=== PATIENT | female | born 1980 | race American Indian/Alaskan Native ===

== ENCOUNTER 2018-12-30 02:55 | Emergency (ER) | payer OTHER ==
[2018-12-30] MEDS ORDERED: DUONEB *Not for PRN Use IH ONE ×3 (03:03→03:10)
[2018-12-30 03:09] VITALS: BP 169/88
--- NOTE | 2018-12-30 05:09 | XRay Report ---
PROCEDURE: XR CHEST ROUTINE 2V TECHNIQUE: PA and lateral views the chest were submitted. HISTORY: cough and wheezing COMPARISONS: 08/05/2016 FINDINGS: The heart size and mediastinum appear normal. The lungs are not congested. The lungs are clear. Pleur al fluid is not seen. The skeletal structures do not show any acute changes. IMPRESSION: No acute cardiopulmonary process.. This document is electronically signed by Praveen Swift MD., December 30 2018 05:07:14 AM ET
[2018-12-30] MEDS ORDERED: DECADRON IM ONE (08:19)
[2018-12-30] MEDS ORDERED: ROBITUSSIN PO ONE (08:21)
[2018-12-30] MEDS ORDERED: ZOFRAN ODT PO ONE (08:29)
[2018-12-30] MEDS ORDERED: ZOFRAN ODT ONE (08:32)
--- NOTE | 2018-12-30 08:37 | Emergency Department Report ---
ED Asthma HPI - General Chief Complaint: Adult Asthma Stated Complaint: ASTHMA SOB Time Seen by Provider: 12/30/18 08:06 Source: patient Mode of arrival: Ambulatory Limitations: No Limitations - History of Present Illness Initial Comments: 38-year-old female with a history of asthma presents easy complaint wheezing and coughing that started yesterday morning. She says that she is out of her Symbicort prescription. Patient denies chest pain, fever, nausea vomiting - Related Data Previous Rx's Medication Instructions Recorded Last Taken Type Budesonide [Pulmicort Respules] 0.5 mg IH Q12HR #30 nebu 02/07/16 Unknown Rx Albuterol Sulfate [Albuterol 0.63% 0.63 mg IH Q4-6H PRN #1 box 08/01/16 Unknown Rx NEBS] Albuterol Sulfate [Ventolin HFA] 2 puff IH Q4H PRN #1 hfa.aer.ad 08/01/16 Unknown Rx Ipratropium [Atrovent NEB] 0.5 mg IH Q6HRT PRN #25 neb 08/01/16 Unknown Rx Azithromycin [Zithromax TAB] 500 mg PO QDAY #4 tablet 08/06/16 Unknown Rx Benzonatate [Tessalon Perles] 100 mg PO Q8HR #20 capsule 12/30/18 Unknown Rx Budesonide/Formoterol Fumarate 10.2 gm IH PRN #1 hfa.aer.ad 12/30/18 Unknown Rx [Symbicort 160-4.5 Mcg Inhaler] Montelukast [Singulair] 10 mg PO QPM #30 tablet 12/30/18 Unknown Rx Prednisone [predniSONE 10 mg 10 mg PO .TAPER #1 tab.ds.pk 12/30/18 Unknown Rx (6-Day Pack, 21 Tabs)] Allergies Allergy/AdvReac Type Severity Reaction Status Date / Time No Known Allergies Allergy Verified 05/18/15 08:48 ED Review of Systems ROS: Stated complaint: ASTHMA SOB Other details as noted in HPI Comment: All other systems reviewed and negative ED Past Medical Hx - Past Medical History Previous Medical History?: Yes Hx Hypertension: No Hx Heart Attack/AMI: No Hx Congestive Heart Failure: No Hx Diabetes: Yes (gestational) Hx Arthritis: No Hx Asthma: Yes Hx COPD: No Hx HIV: No Additional medical history: OBESITY - Surgical History Past Surgical History?: No - Social History Smoking Status: Former Smoker Substance Use Type: None - Medications Home Medications: Home Medications Medication Instructions Recorded Confirmed Last Taken Type Budesonide [Pulmicort Respules] 0.5 mg IH Q12HR #30 nebu 02/07/16 08/05/16 Unknown Rx Albuterol Sulfate [Albuterol 0.63% 0.63 mg IH Q4-6H PRN #1 box 08/01/16 08/05/16 Unknown Rx NEBS] Albuterol Sulfate [Ventolin HFA] 2 puff IH Q4H PRN #1 hfa.aer.ad 08/01/16 08/05/16 Unknown Rx Ipratropium [Atrovent NEB] 0.5 mg IH Q6HRT PRN #25 neb 08/01/16 08/05/16 Unknown Rx Azithromycin [Zithromax TAB] 500 mg PO QDAY #4 tablet 08/06/16 Unknown Rx Benzonatate [Tessalon Perles] 100 mg PO Q8HR #20 capsule 12/30/18 Unknown Rx Budesonide/Formoterol Fumarate 10.2 gm IH PRN #1 hfa.aer.ad 12/30/18 Unknown Rx [Symbicort 160-4.5 Mcg Inhaler] Montelukast [Singulair] 10 mg PO QPM #30 tablet 12/30/18 Unknown Rx Prednisone [predniSONE 10 mg 10 mg PO .TAPER #1 tab.ds.pk 12/30/18 Unknown Rx (6-Day Pack, 21 Tabs)] ED Physical Exam - General Limitations: No Limitations General appearance: alert, in no apparent distress - Head Head exam: Present: atraumatic, normocephalic - Eye Eye exam: Present: normal appearance - ENT ENT exam: Present: mucous membranes moist - Neck Neck exam: Present: normal inspection - Respiratory Respiratory exam: Present: normal lung sounds bilaterally, wheezes (moderately bilaterally). Absent: respiratory distress, rales, rhonchi, chest wall tenderness, accessory muscle use - Cardiovascular Cardiovascular Exam: Present: regular rate, normal rhythm. Absent: systolic murmur, diastolic murmur, rubs, gallop - GI/Abdominal GI/Abdominal exam: Present: soft, normal bowel sounds - Extremities Exam Extremities exam: Present: normal inspection - Back Exam Back exam: Present: normal inspection - Neurological Exam Neurological exam: Present: alert, oriented X3 - Psychiatric Psychiatric exam: Present: normal affect, normal mood - Skin Skin exam: Present: warm, dry, intact, normal color. Absent: rash ED Course Vital Signs 12/30/18 12/30/18 03:02 08:36 Temperature 98.1 F Pulse Rate 78 58 L Respiratory 20 20 Rate Blood Pressure 169/88 O2 Sat by Pulse 95 97 Oximetry ED Medical Decision Making - Radiology Data Radiology results: report reviewed, image reviewed - Medical Decision Making 38-year-old female presents with asthma exacerbation (Mild) ED course: Chest x-ray ordered, chest x-ray shows no acute findings. Patient had no respiratory distress in the ED. Post treatment evaluation: No wheezing heard, no use of accessory muscles, I discussed with the patient to follow up with her primary care physician. I discussed with the patient will be going home on with albuterol inhaler as we ll as nebulizer Vital signs are normalized, patient is saturation at 99% on room air. I discussed with the patient is symptoms worsen to return to ED immediately. Critical care attestation.: If time is entered above; I have spent that time in minutes in the direct care of this critically ill patient, excluding procedure time. ED Disposition Clinical Impression: Asthma Disposition: DC-01 TO HOME OR SELFCARE Is pt being admited?: No Does the pt Need Aspirin: No Condition: Stable Instructions: Asthma (ED) Additional Instructions: Make sure to follow up with the primary care physician as discussed. Take all your medications as you've been prescribed. If you have any worsening symptoms or develop new symptoms please return to ED immediately. Prescriptions: Prednisone [predniSONE 10 mg (6-Day Pack, 21 Tabs)] 10 mg PO .TAPER #1 tab.ds.pk Montelukast [Singulair] 10 mg PO QPM #30 tablet Budesonide/Formoterol Fumarate [Symbicort 160-4.5 Mcg Inhaler] 10.2 gm IH PRN #1 hfa.aer.ad Benzonatate [Tessalon Perles] 100 mg PO Q8HR #20 capsule Referrals: PRIMARY CARE, [Primary Care Provider] - 3-[address] [facility] [Provider Group] - 3-[address] [facility] [Outside] - 3-5 Days [facility] [Outside] - 3-5 Days Forms: Work/School Release Form(ED) Time of Disposition: 08:38
== END 2018-12-30 08:50 | disposition home or self-care (01) ==
LOC: ED 02:55
DX: J45.909 Unspecified asthma, uncomplicated (principal); E11.9 Type 2 diabetes mellitus without complications; E66.9 Obesity, unspecified; Z68.44 Body mass index [BMI] 60.0-69.9, adult; Z87.891 Personal history of nicotine dependence
CPT/HCPCS: 71046; 94640; 96372; 99284; J1100; Q0162